=== PATIENT | male | born 1950 | race Caucasian/White ===

== ENCOUNTER 2016-12-11 00:10 | Observation (INO) | payer BC, MEDICARE ==
[~2016-12-11] VITALS: Ht 188 cm; Wt 100.0 kg
[2016-12-11] VITALS (10 sets, daily range): BP systolic 111–202; BP diastolic 62–99; PULSE 70–97; RESP 16–20; TEMP 98–98.2; O2SAT 94–98
[2016-12-11] MEDS ORDERED: ASPI81CH CHEW (00:21)
[2016-12-11] MEDS ORDERED: BP MED (00:21)
[2016-12-11] MEDS ORDERED: ATOR1TAB18 PO (00:21)
[2016-12-11] MEDS ORDERED: TOPR50TA PO (00:21)
--- NOTE | 2016-12-11 00:23 | PD ---
HPI Chief Complaint: Syncope/Near-Syncope Time Seen by Provider: 00:17 Travel History International Travel<30 days: No Contact w/Intl Traveler<30days: No Traveled to known affect area: No History of Present Illness HPI 66-year-old male complains of palpitation, diaphoresis, lightheadedness and headache. Patient states that he was sitting down at home and watching TV and started having headache. Patient started having palpitation, diaphoresis and lightheadedness subsequently. Patient denies any visual change. Patient states the headache was aching headache diffuse over the head. Patient denies any neck pain. Patient denies any chest pain. Patient denies any shortness of breath. Patient denies abdominal pain. Patient states that he had nausea but no vomiting or diarrhea. Patient denies any focal weakness or numbness of extremity. Patient has history of CAD status post CABG. Patient has history of hypertension and dyslipidemia. Patient denies any history of diabetes. Patient is a nonsmoker. Patient denies any alcohol or drug abuse. EMS was called. Patient was on manager monitoring. Patient had frequent PVCs on the way to the ED. Patient states that he had arrhythmia in the past after his physician changed his medications. FORMERLY [facility], [facility] Past Medical History Cardiovascular Problems: Yes High Cholesterol: Yes Diabetes: No Hypertension: Yes Past Surgical History Cardiac Surgery: Yes (CABGX3 1999) Social History Alcohol Use: Yes (OCC.) Tobacco Use: No Substance Use: No Allergies-Medications (Allergen,Severity, Reaction): Coded Allergies: No Known Allergies (Unverified , 12/11/16) Reported Meds & Prescriptions Reported Meds & Active Scripts Active Reported Aspirin 81 Mg Chew 81 Mg CHEW HS [Bp Med] Atorvastatin (Atorvastatin Calcium) 80 Mg Tab 80 Mg PO HS Toprol XL (Metoprolol Succinate) 50 Mg Tab 75 Mg PO DAILY Review of Systems General / Constitutional: No: Fever Eyes: No: Visual changes HENT: Positive: Headaches, Lightheadedness Cardiovascular: Positive: Palpitations, No: Chest Pain or Discomfort Respiratory: No: Shortness of Breath Gastrointestinal: No: Abdominal Pain Genitourinary: No: Dysuria Musculoskeletal: No: Pain Skin: No Rash Neurologic: No: Weakness Psychiatric: No: Depression Endocrine: No: Polydipsia Hematologic/Lymphatic: No: Easy Bruising Physical Exam Narrative GENERAL: Well-nourished, well-developed patient. SKIN: Warm and dry. HEAD: Normocephalic. EYES: No scleral icterus. No injection or drainage. NECK: Supple, trachea midline. No JVD or lymphadenopathy. CARDIOVASCULAR: Regular rate and rhythm without murmurs, gallops, or rubs. RESPIRATORY: Breath sounds equal bilaterally. No accessory muscle use. GASTROINTESTINAL: Abdomen soft, non-tender, nondistended. MUSCULOSKELETAL: No cyanosis, or edema. BACK: Nontender without obvious deformity. No CVA tenderness. Neurologic exam normal. Data Data Last Documented VS Vital Signs Date Time Temp Pulse Resp B/P Pulse Ox O2 Delivery O2 Flow Rate FiO2 12/11/16 00:33 89 18 157/92 95 Room Air 12/11/16 00:13 98.2 Orders Electrocardiogram (12/11/16 00:18) Complete Blood Count With Diff (12/11/16 00:18) Comprehensive Metabolic Panel (12/11/16 00:18) Troponin I (12/11/16 00:18) Prothrombin Time / Inr (Pt) (12/11/16 00:18) Act Partial Throm Time (Ptt) (12/11/16 00:18) Urinalysis - C+S If Indicated (12/11/16 00:18) Thyroid Stimulating Hormone (12/11/16 00:18) Chest, Single Ap (12/11/16 00:18) Ct Brain W/O Iv Contrast(Rout) (12/11/16 00:18) Iv Access Insert/Monitor (12/11/16 00:18) Ecg Monitoring (12/11/16 00:18) Oximetry (12/11/16 00:18) Ct Abd/Pel W Iv Contrast(Rout) (12/11/16 01:21) Magnesium (Mg) (12/11/16 01:47) Iohexol 350 Inj (Omnipaque 350 Inj) (12/11/16 02:12) Consult Cardiology (12/11/16 ) Echo 2d Comp W/Dopp(Routine) (12/11/16 ) Labs Laboratory Tests Test 12/11/16 12/11/16 00:25 00:28 White Blood Count 9.5 TH/MM3 Red Blood Count 4.86 MIL/MM3 Hemoglobin 14.7 GM/DL Hematocrit 42.9 % Mean Corpuscular Volume 88.3 FL Mean Corpuscular Hemoglobin 30.2 PG Mean Corpuscular Hemoglobin 34.3 % Concent Red Cell Distribution Width 14.2 % Platelet Count 249 TH/MM3 Mean Platelet Volume 7.6 FL Neutrophils (%) (Auto) 51.5 % Lymphocytes (%) (Auto) 34.7 % Monocytes (%) (Auto) 10.5 % Eosinophils (%) (Auto) 2.7 % Basophils (%) (Auto) 0.6 % Neutrophils # (Auto) 4.9 TH/MM3 Lymphocytes # (Auto) 3.3 TH/MM3 Monocytes # (Auto) 1.0 TH/MM3 Eosinophils # (Auto) 0.3 TH/MM3 Basophils # (Auto) 0.1 TH/MM3 CBC Comment DIFF FINAL Differential Comment Prothrombin Time 10.8 SEC Prothromb Time International 1.0 RATIO Ratio Activated Partial 23.6 SEC Thromboplast Time Sodium Level 142 MEQ/L Potassium Level 3.2 MEQ/L Chloride Level 105 MEQ/L Carbon Dioxide Level 27.9 MEQ/L Anion Gap 9 MEQ/L Blood Urea Nitrogen 13 MG/DL Creatinine 1.12 MG/DL Estimat Glomerular Filtration 65 ML/MIN Rate Random Glucose 144 MG/DL Calcium Level 9.6 MG/DL Total Bilirubin 1.0 MG/DL Aspartate Amino Transf 30 U/L (AST/SGOT) Alanine Aminotransferase 39 U/L (ALT/SGPT) Alkaline Phosphatase 99 U/L Troponin I LESS THAN 0.02 NG/ML Total Protein 7.3 GM/DL Albumin 3.9 GM/DL Thyroid Stimulating Hormone 8.340 uIU/ML 3rd Gen Urine Color YELLOW Urine Turbidity CLEAR Urine pH 5.5 Urine Specific [place] 1.024 Urine Protein 30 mg/dL Urine Glucose (UA) NEG mg/dL Urine Ketones NEG mg/dL Urine Occult Blood NEG Urine Nitrite NEG Urine Bilirubin NEG Urine Urobilinogen LESS THAN 2.0 MG/DL Urine Leukocyte Esterase NEG Urine RBC LESS THAN 1 /hpf Urine WBC 1 /hpf Urine Squamous Epithelial <1 /hpf Cells Urine Mucus FEW /lpf Microscopic Urinalysis Comment CULT NOT INDICATED MDM Medical Decision Making Medical Screen Exam Complete: Yes Emergency Medical Condition: Yes Interpretation(s) EKG shows sinus rhythm with Q wave II, III, aVF. 1:20 AM. Last Impressions Head CT 12/11/16 0018 Signed Impressions: Service Date/Time: Sunday, December 11, 2016 00:38 - CONCLUSION: No acute disease. Sanjeev Adame Jr., MD Chest X-Ray 12/11/16 0018 Signed Impressions: Service Date/Time: Sunday, December 11, 2016 00:49 - CONCLUSION: 1. Questionable pneumoperitoneum below the left hemidiaphragm. 2. Clear lungs. Sanjeev Adame Jr., MD 1:23 AM. CBC within normal limit. CMP within normal limit. Potassium 3.2. Cardiac enzymes are normal. TSH 8.34. UA is negative. 2:[address] scan abdomen pelvis negative acute pathology. Differential Diagnosis Differential diagnosis including PACs, PVCs, atrial fibrillation, atrial flutter , arrhythmia. Narrative Course 66-year-old male complains of headache, palpitation, lightheadedness, diaphoresis. Patient had frequent PVCs on manager monitoring by EMS. No PVCs noted on the monitor in the ED. Diagnosis Primary Impression: Cardiac arrhythmia Qualified Code: I49.9 - Cardiac arrhythmia, unspecified cardiac arrhythmia type Admitting Information Admitting Physician Requests: Observation David Lal MD Dec 11, 2016 00:22
[2016-12-11 00:34] LABS: AUTOMATED NEUTROPHIL # 4.9 TH/MM3 (1.8-7.7); BASOPHIL # 0.1 TH/MM3 (0-0.2); BASOPHIL % 0.6 % (0.0-2.0); EOSINOPHIL # 0.3 TH/MM3 (0-0.4); EOSINOPHIL % 2.7 % (0.0-4.0); HEMATOCRIT 42.9 % (39.0-51.0); HEMO FLAGS DIFF FINAL; LYMPH % 34.7 % (9.0-44.0); LYMPHOCYTE # 3.3 TH/MM3 (1.0-4.8); MEAN CELL VOLUME 88.3 FL (80.0-100.0); MEAN CORPUSCULAR HEMOGLOBIN 30.2 PG (27.0-34.0); MEAN CORPUSCULAR HGB CONC 34.3 % (32.0-36.0); MONO % 10.5 % (0.0-8.0); NEUT % 51.5 % (16.0-70.0); PLATELET COUNT 249 TH/MM3 (150-450); RED BLOOD COUNT 4.86 MIL/MM3 (4.50-5.90); RED CELL DISTRIBUTION WIDTH 14.2 % (11.6-17.2); WHITE BLOOD COUNT 9.5 TH/MM3 (4.0-11.0)
[2016-12-11 00:48] LABS: BLOOD, URINE NEG (NEG); GLUCOSE,URINE NEG (NEG); KETONE, URINE NEG (NEG); MUCUS URINE FEW /lpf (OCC); NITRITE,URINE NEG (NEG); PH, URINE 5.5 (5.0-8.5); SQUAMOUS EPITHELIAL CELL URINE <1 /hpf (0-5); URINE COLOR YELLOW (YELLW/STRAW)
[2016-12-11 00:48] LABS: APTT (PATIENT) 23.6 SEC (24.3-30.1); PROTHROMBIN TIME - PATIENT 10.8 SEC (9.8-11.6)
[2016-12-11 00:49] LABS: COMMENT (UR) CULT NOT INDICATED; CULTURE IF INDICATED CULT NOT INDICATED
--- NOTE | 2016-12-11 00:57 | RADRPT ---
EXAM DATE/TIME: 12/11/2016 00:38 [facility] COMPARISON: No previous studies available for comparison. INDICATIONS : Near syncope along with headache. RADIATION DOSE: 35.77 CTDIvol (mGy) MEDICAL HISTORY : Hypertension. SURGICAL HISTORY : None. ENCOUNTER: Initial ACUITY: 1 day PAIN SCALE: 4/10 LOCATION: cranial TECHNIQUE: Multiple contiguous axial images were obtained of the head. Using automated exposure control and adj ustment of the mA and/or kV according to patient size, radiation dose was kept as low as reasonably a chievable to obtain optimal diagnostic quality images. FINDINGS: CEREBRUM: The ventricles are normal for age. No evidence of midline shift, mass lesion, hemorrhage or acute in farction. No extra-axial fluid collections are seen. POSTERIOR FOSSA: The cerebellum and brainstem are intact. The 4th ventricle is midline. The cerebellopontine angle i s unremarkable. EXTRACRANIAL: The visualized portion of the orbits is intact. SKULL: The calvaria is intact. No evidence of skull fracture. CONCLUSION: No acute disease. Sanjeev Adame Jr., MD on December 11, 2016 at 0:54 Board Certified Radiologist. This report was verified electronically.
[2016-12-11 01:10] LABS: ALKALINE PHOSPHATASE 99 U/L (45-117)
--- NOTE | 2016-12-11 01:13 | RADRPT ---
EXAM DATE/TIME: 12/11/2016 00:49 [facility] COMPARISON: No previous studies available for comparison. INDICATIONS : Shortness of breath, generalized weakness, and nausea. MEDICAL HISTORY : None. SURGICAL HISTORY : CABG. ENCOUNTER: Initial ACUITY: 1 day PAIN SCORE: 0/10 LOCATION: chest FINDINGS: A single view of the chest demonstrates the lungs to be symmetrically aerated without evidence of mas s, infiltrate or effusion. The cardiomediastinal contours are unremarkable. Osseous structures are intact. A linear lucency below the left hemidiaphragm suggesting air. I am unable to differentiate whether th is is within the fundus of the stomach or it represents pneumoperitoneum. CONCLUSION: 1. Questionable pneumoperitoneum below the left hemidiaphragm. 2. Clear lungs. Sanjeev Adame Jr., MD on December 11, 2016 at 1:11 Board Certified Radiologist. This report was verified electronically.
[2016-12-11 01:18] LABS: ALT (GPT) 39 U/L (12-78); ANION GAP 9 MEQ/L (5-15); AST (GOT) 30 U/L (15-37); BICARBONATE 27.9 MEQ/L (21.0-32.0); BLOOD UREA NITROGEN 13 MG/DL (7-18); CHLORIDE 105 MEQ/L (98-107); GLOMERULAR FILTRATION RATE 65 ML/MIN (>89); POTASSIUM 3.2 MEQ/L (3.5-5.1); SODIUM (NA) 142 MEQ/L (136-145)
[2016-12-11] MEDS ORDERED: IOHEXOL 350 MG/ML 10 ML VIAL (for RAD DIAG) IV ONE (02:12)
--- NOTE | 2016-12-11 02:41 | RADRPT ---
EXAM DATE/TIME: 12/11/2016 02:08 [facility] COMPARISON: No previous studies available for comparison. INDICATIONS : Abnormal chest radiograph. Evaluate for free abdominal air. IV CONTRAST: 100 cc Omnipaque 350 (iohexol) IV ; Cumulative dose for multiple exams. ORAL CONTRAST: No oral contrast ingested. RADIATION DOSE: 12.64 CTDIvol (mGy) MEDICAL HISTORY : Hypertension. SURGICAL HISTORY : CABG ENCOUNTER: Initial ACUITY: 1 day PAIN SCALE: 0/10 LOCATION: abdomen TECHNIQUE: Volumetric scanning of the abdomen and pelvis was performed. Using automated exposure control and ad justment of the mA and/or kV according to patient size, radiation dose was kept as low as reasonably achievable to obtain optimal diagnostic quality images. FINDINGS: LOWER LUNGS: Bibasilar atelectasis. LIVER: Homogeneous density without lesion. There is no dilation of the biliary tree. No calcified gallston es. SPLEEN: Normal size without lesion. PANCREAS: Within normal limits. KIDNEYS: Normal in size and shape. There is no mass or hydronephrosis. Bilateral nonobstructing renal calculi . The largest measures 5 mm. ADRENAL GLANDS: Within normal limits. VASCULAR: There is no aortic aneurysm. BOWEL/MESENTERY: The stomach, small bowel, and colon demonstrate no acute abnormality. There is no free intraperitone al air or fluid. Scattered colonic diverticuli without acute inflammation. ABDOMINAL WALL: Within normal limits. RETROPERITONEUM: There is no lymphadenopathy. BLADDER: No wall thickening or mass. REPRODUCTIVE: Within normal limits. INGUINAL: There is no lymphadenopathy or hernia. MUSCULOSKELETAL: Within normal limits for patient age. CONCLUSION: 1. No pneumoperitoneum. 2. Bilateral nonobstructing renal calculi. 3. Colonic diverticulosis. 4. No acute abnormality. Sanjeev Adame Jr., MD on December 11, 2016 at 2:36 Board Certified Radiologist. This report was verified electronically.
[2016-12-11] MEDS ORDERED: NALOXONE HCL 0.4 MG/ML AMP IV PRN (03:15)
[2016-12-11] MEDS ORDERED: SODIUM CHLORIDE 0.9% FLUSH 10 ML FLUSH IV FLUSH PRN (03:15)
[2016-12-11] MEDS ORDERED: PILL SPLITTER OTHER PRN (08:30)
[2016-12-11] MEDS ORDERED: POTASSIUM CHLORIDE 20 MEQ CONTROLLED RELEASE TAB PO ONE (08:30)
--- NOTE | 2016-12-11 08:44 | HHI.HP ---
HPI Service [facility] Primary Care Physician No Primary Care Physician Admission Diagnosis cardiac arrhythmia Diagnoses: Chief Complaint: palpitations, diaphoresis Travel History International Travel<30 Days: No Contact w/Intl Traveler <30 Da: No Traveled to Known Affected Are: No History of Present Illness 66-year-old male with history of CAD, CABG [id number] in 1999, HTN, HLD presents with palpitations and diaphoresis. The patient reports last night he was watching [facility] on the television when he had acute onset of profuse diaphoresis, palpitations, lightheadedness, nausea, but no vomiting. Denies any chest pain, pressure, or shortness of breath. Denies any abdominal pain or diarrhea. Denies any orthopnea, weight gain, or leg swelling. The patient states with his previous UT, his symptoms were much worse and associated with significant chest pain. He last had a stress test in Apr or May 2016 which was reportedly normal. He does not recall his last echocardiogram. His cyber crime investigator is Dr. Rafiq Lewis in [place]. The patient currently feels better, no further palpitations or diaphoresis overnight. Review of Systems Except as stated in HPI: all other systems reviewed are Neg Past Family Social History Past Medical History Nephrolithiasis Hypertension CAD in 1999 Hyperlipidemia Past Surgical History CABG x4 vessels, 1999 Reported Medications Aspirin 81 Mg Chew 81 Mg CHEW HS [Unknown Bp Med] Atorvastatin (Atorvastatin Calcium) 80 Mg Tab 80 Mg PO HS Toprol XL (Metoprolol Succinate) 50 Mg Tab 75 Mg PO DAILY Allergies: Coded Allergies: No Known Allergies (Unverified , 12/11/16) Active Ordered Medications Current Medications Medications (Trade) Dose Ordered Sig/Marily Route Start Time Stop Time Status Last Admin (NS Flush) 2 ml UNSCH PRN IV FLUSH 12/11/16 03:15 (NS Flush) 2 ml BID IV FLUSH 12/11/16 09:00 (Lovenox Inj) 40 mg Q24H SQ 12/11/16 09:00 Naloxone HCl 0.4 mg 0.4 mg UNSCH PRN IV 12/11/16 03:15 (Magnesium Sulfate 1 Gm Premix) 100 ml @ 100 mls/hr ONCE ONCE IV 12/11/16 09:00 12/11/16 09:59 (Aspirin Chew) 81 mg HS CHEW 12/11/16 21:00 (Lipitor) 80 mg HS PO 12/11/16 21:00 (Toprol Xl) 75 mg DAILY PO 12/11/16 09:00 (Pill Splitter) 1 ea UNSCH PRN OTHER 12/11/16 08:30 Family History Everyone in his family with heart disease, hypertension, some family members with MIs in their 40s Social History Quit smoking tobacco at age 21, no tobacco use since Occasional alcohol use Denies illicit drug use Physical Exam Vital Signs Vital Signs Date Time Temp Pulse Resp B/P Pulse Ox O2 Delivery O2 Flow Rate FiO2 12/11/16 06:21 86 18 125/76 94 Room Air 12/11/16 02:30 97 18 168/99 97 Room Air 12/11/16 00:33 89 18 157/92 95 Room Air 12/11/16 00:25 90 12/11/16 00:24 95 Room Air 12/11/16 00:13 98.2 96 20 202/95 97 Physical Exam GENERAL: Well-nourished, well-developed male patient, in NAD. SKIN: No rashes, ecchymoses or lesions. Cool and dry. HEAD: Atraumatic. Normocephalic. No temporal or scalp tenderness. EYES: Pupils equal round and reactive. Extraocular motions intact. No scleral icterus. No injection or drainage. ENT: Nose without bleeding, purulent drainage or septal hematoma. Airway patent. NECK: Trachea midline. No JVD or lymphadenopathy. Supple, nontender, no meningeal signs. CARDIOVASCULAR: Regular rate and rhythm without murmurs, gallops, or rubs. RESPIRATORY: Clear to auscultation. Breath sounds equal bilaterally. No wheezes , rales, or rhonchi. GASTROINTESTINAL: Abdomen soft, non-tender, nondistended. No hepato-splenomegaly , or palpable masses. No guarding. MUSCULOSKELETAL: Extremities without clubbing, cyanosis, or edema. No calf tenderness. NEUROLOGICAL: Awake and alert. Cranial nerves II through XII intact. Motor and sensory grossly within normal limits. Five out of 5 muscle strength in all muscle groups. Normal speech. Laboratory Laboratory Tests Test 12/11/16 12/11/16 12/11/16 00:25 00:28 06:20 White Blood Count 9.5 Red Blood Count 4.86 Hemoglobin 14.7 Hematocrit 42.9 Mean Corpuscular Volume 88.3 Mean Corpuscular Hemoglobin 30.2 Mean Corpuscular Hemoglobin 34.3 Concent Red Cell Distribution Width 14.2 Platelet Count 249 Mean Platelet Volume 7.6 Neutrophils (%) (Auto) 51.5 Lymphocytes (%) (Auto) 34.7 Monocytes (%) (Auto) 10.5 Eosinophils (%) (Auto) 2.7 Basophils (%) (Auto) 0.6 Neutrophils # (Auto) 4.9 Lymphocytes # (Auto) 3.3 Monocytes # (Auto) 1.0 Eosinophils # (Auto) 0.3 Basophils # (Auto) 0.1 CBC Comment DIFF FINAL Differential Comment Prothrombin Time 10.8 Prothromb Time International 1.0 Ratio Activated Partial 23.6 Thromboplast Time Sodium Level 142 Potassium Level 3.2 Chloride Level 105 Carbon Dioxide Level 27.9 Anion Gap 9 Blood Urea Nitrogen 13 Creatinine 1.12 Estimat Glomerular Filtration 65 Rate Random Glucose 144 Calcium Level 9.6 Magnesium Level 1.6 Total Bilirubin 1.0 Aspartate Amino Transf 30 (AST/SGOT) Alanine Aminotransferase 39 (ALT/SGPT) Alkaline Phosphatase 99 Troponin I LESS THAN 0.02 0.03 Total Protein 7.3 Albumin 3.9 Thyroid Stimulating Hormone 8.340 3rd Gen Urine Color YELLOW Urine Turbidity CLEAR Urine pH 5.5 Urine Specific [place] 1.024 Urine Protein 30 Urine Glucose (UA) NEG Urine Ketones NEG Urine Occult Blood NEG Urine Nitrite NEG Urine Bilirubin NEG Urine Urobilinogen LESS THAN 2.0 Urine Leukocyte Esterase NEG Urine RBC LESS THAN 1 Urine WBC 1 Urine Squamous Epithelial <1 Cells Urine Mucus FEW Microscopic Urinalysis Comment CULT NOT INDICATED Total Creatine Kinase 111 Result Diagram: 12/11/16 0025 12/11/16 0025 Imaging Last Impressions Abdomen/Pelvis CT 12/11/16 0121 Signed Impressions: Service Date/Time: Sunday, December 11, 2016 02:08 - CONCLUSION: 1. No pneumoperitoneum. 2. Bilateral nonobstructing renal calculi. 3. Colonic diverticulosis. 4. No acute abnormality. Sanjeev Adame Jr., MD Head CT 12/11/16 0018 Signed Impressions: Service Date/Time: Sunday, December 11, 2016 00:38 - CONCLUSION: No acute disease. Sanjeev Adame Jr., MD Chest X-Ray 12/11/16 0018 Signed Impressions: Service Date/Time: Sunday, December 11, 2016 00:49 - CONCLUSION: 1. Questionable pneumoperitoneum below the left hemidiaphragm. 2. Clear lungs. Sanjeev Adame Jr., MD Assessment and Plan Problem List: (1) Cardiac arrhythmia ICD Code: I49.9 Status: Acute Assessment and Plan 66-year-old male with history of CAD, CABG [id number] in 1999, HTN, HLD presents with palpitations and diaphoresis. Palpitations: with diaphoresis/lightheadedness/nausea. No chest pain. Initial troponins 0.02, 0.03, checking 3rd set. EKG shows sinus rhythm with Q wave II, III, aVF. Replace electrolytes. Monitor on telemetry. Holter monitor. Check echocardiogram. Consult cardiology. Continue patient's metoprolol. CAD s/p CABG: in 1999. Reportedly recent stress test in May 2016 unremarkable. His cyber crime investigator is Dr. Rafiq Lewis in [place]. Continue patient' s aspirin, statin, metoprolol. Hypokalemia/Hypomagnesemia: K 3.2, Mag 1.6, replaced with po KCl and IV mag sulfate. HTN/HLD: chronic, continue patient's metoprolol and statin. Patient also takes another BP med, unknown which med at this time, to verify with . DVT Prophylaxis: Lovenox Written by Laure Araya, acting as scribe for Dr. Clay on 12/11/16 at 08:43. All or portions of this note were transcribed by scribe Laure Araya. I, Dr. Lisa Clay personally performed the history, physical exam, and medical decision making; and confirmed the accuracy of the information in the transcribed note. Authenticated by Dr. Lisa Clay on 12/11/16 at 08:43. Discussed Condition With Patient, RN Problem Qualifiers (1) Cardiac arrhythmia: Qualified Code: I49.9 - Cardiac arrhythmia, unspecified cardiac arrhythmia type Laure Araya PA-C Dec 11, 2016 08:44 Lisa Clay MD Dec 11, 2016 18:12
[2016-12-11] MEDS: ENOXAPARIN SODIUM 40 MG/0.4 ML SYRINGE SQ SCH (09:00)
[2016-12-11] MEDS: SODIUM CHLORIDE 0.9% FLUSH 10 ML FLUSH IV FLUSH SCH ×2 (09:00→21:00)
[2016-12-11] MEDS ORDERED: MAGNESIUM SULFATE 1 GM PREMIX 100 ML IV ONE (09:00)
[2016-12-11] MEDS: METOPROLOL SUCCINATE 50 MG EXTENDED RELEASE TAB PO SCH (09:35)
--- NOTE | 2016-12-11 10:14 | MB ---
cc: KATE HIRSCH M.D. DATE OF CONSULTATION: 12/11/2016 REASON FOR CONSULTATION Evaluation of possible arrhythmia. HISTORY OF PRESENT ILLNESS Onel Dye is a 66-year-old man cared for by Dr. Rafiq Lewis in [place]. His phone number is [phone]. The patient has a history of having a silent heart attack and had anginal pain prior to his bypass. The bypass was in the year 1999 and was apparently a three-vessel bypass. His last nuclear stress test was right before he came down to [place], he estimates around April or May, and he was not told of any problems. He has had Holter monitors for arrhythmias and has been diagnosed with having PVCs, or what he calls useless beats. He had previously been on Altace. His insurance denied that and he got switched to something else that caused a cough and he got switched to something else but we do not have that medication on his med list. I am suspecting it may be an angiotensin receptor benjamin like losartan, but he could not recognize the name. He does not feel the PVCs that he has been documented as having in the past. He has had prior Holter monitors, but Dr. Lewis's office is not open yet so we could not get any history directly. The patient states he was watching TV and developed the onset of rapid palpitations, like his heart was beating hard, associated with presyncope and sweating. After about three minutes he called 911. It was still going on when [facility] picked him up. He apparently had some PVCs on his EKG. When [facility] picked him up he was not in atrial fibrillation. Subsequently has rhythm here has been normal. There has been no atrial fibrillation documented. He does not have any chest pain. His initial troponins are negative. He works at a [employer], does a fair amount of walking involved with that, does not have any anginal symptoms. Denies shortness of breath or chest discomfort. He has not been aware of any palpitations prior to this. He also had some nausea associated with his symptoms when he came. PAST MEDICAL HISTORY 1. Hypertension. 2. Hyperlipidemia. 3. Coronary artery disease and bypass in the year 1999. 4. Frequent PVCs, has been treated with a beta-benjamin MEDICATIONS 1. Aspirin 81 mg. 2. Atorvastatin 80 mg. 3. Toprol 75 mg. 4. Plus another green pill and we do not know the name of. SOCIAL HISTORY Occasional alcohol. Non-smoker. ALLERGIES None known. PAST SURGICAL HISTORY Notable for bypass surgery. PHYSICAL EXAMINATION GENERAL: A well-developed, well-nourished white male in no acute distress. VITAL SIGNS: Vital signs are charted. HEENT: Exam unremarkable. NECK: No JVD. No bruits. CHEST: Clear to auscultation. CARDIAC: S1, S2, regular rate and rhythm. No murmurs or gallops. ABDOMEN: Soft, nontender. No masses or organomegaly. EXTREMITIES: No clubbing, cyanosis or edema. Pulses are intact. EKG EKG shows sinus rhythm, evidence for an old inferior wall MD and nonspecific ST-T wave changes. LABORATORY Troponin has been negative x2. TSH 8.34. Hematocrit 42.9. IMAGING Chest x-ray showed clear lungs. Abdominal CT showed renal stones and diverticulosis. Head CT showed no acute disease. A 2-D echo Doppler study is pending. IMPRESSION/PLAN A 66-year-old man with a 30 minute episode of palpitations, presyncope and sweating, suspicious for some type of an arrhythmia. All that was documented when [facility] showed up were PVCs. We do not have any arrhythmia detected here. A 2-D echo Doppler is ordered to make sure he does not have LV dysfunction that would warrant an EP evaluation for ventricular arrhythmias. I would be suspicious of atrial fibrillation, but there was no atrial fibrillation picked up when [facility] arrived and apparently symptoms were ongoing when [facility] arrived. Will try to get a hold of Dr. Lewis who follows him regularly to see if there is any further suggestions he has. The patient is returning to [facility] in exactly one month. Will see what his echo shows first. Further therapy to be determined. MD ALESIA Fermin/CAMPOS /7:54 AM /9:53 AM
--- NOTE | 2016-12-11 19:02 | EC ---
Study Study Date:12/11/2016 STUDY CONCLUSIONS SUMMARY LEFT VENTRICLE: The cavity size was normal. Wall thickness was increased in a pattern of mild LVH. Systolic function was normal. The estimated ejection fraction was 55%. Wall motion was normal; there were no regional wall motion abnormalities. If LV function is below 40, please consider prescribing an ACEI or ARB or document rationale for non-use. PROCEDURE DATA STUDY STATUS: Elective. Procedure: Transthoracic echocardiography. Image quality was good. Scanning was performed from the parasternal, apical, and subcostal acoustic windows. Study completion: The patient tolerated the procedure well. Transthoracic echocardiography. M-mode, complete 2D, complete spectral Doppler, and color Doppler. Patient status: Inpatient. CARDIAC ANATOMY LEFT VENTRICLE: The cavity size was normal. Wall thickness was increased in a pattern of mild LVH. Systolic function was normal. The estimated ejection fraction was 55%. Wall motion was normal; there were no regional wall motion abnormalities. AORTIC VALVE: Trileaflet; normal thickness leaflets. Doppler: Transvalvular velocity was within the normal range. There was no stenosis. No regurgitation. AORTA: Aortic root: The aortic root was normal in size. MITRAL VALVE: Structurally normal valve. Doppler: Transvalvular velocity was within the normal range. There was no evidence for stenosis. Trace regurgitation. LEFT ATRIUM: The atrium was normal in size. RIGHT VENTRICLE: The cavity size was normal. Wall thickness was normal. PULMONIC VALVE: Doppler: Transvalvular velocity was within the normal range. There was no evidence for stenosis. No regurgitation. TRICUSPID VALVE: Structurally normal valve. Doppler: Transvalvular velocity was within the normal range. Trace regurgitation. PULMONARY ARTERY: The main pulmonary artery was normal-sized. Systolic pressure was within the normal range. RIGHT ATRIUM: The atrium was normal in size. PERICARDIUM: There was no pericardial effusion. SYSTEMIC VEINS: Inferior vena cava: The vessel was normal in size. BASIC MEASUREMENTS ADULT Normal Left ventricle LV internal dimension, ED, chordal level, *38.5 mm 43-52 PLAX LV internal dimension, ES, chordal level, 29.1 mm 23-38 PLAX Fractional shortening, chordal level, PLAX *24 % >29 LV posterior wall thickness, ED 12 mm IVS/LVPW ratio, ED *1.37 <1.3 Ventricular septum Septal thickness, ED 16.4 mm Aortic valve Leaflet separation 20 mm 15-26 Right ventricle RV internal dimension, ED, PLAX 25.2 mm 19-38 BASIC MEASUREMENTS ADULT Normal Aortic valve Leaflet separation 20 mm 15-26 Aorta Root diameter, ED 36 mm 20-37 Left atrium Anterior-posterior dimension, ES 38 mm 19-40 LA/aortic root ratio 1.06 DOPPLER MEASUREMENTS ADULT Normal Main pulmonary artery Pressure, S 26 mm Hg =30 Mitral valve Peak E-wave velocity 59.7 cm/s Peak A-wave velocity 80 cm/s Peak E/A ratio 0.7 Tricuspid valve Regurgitant peak velocity 200 cm/s Peak RV-RA gradient, S 16 mm Hg Systemic veins Estimated CVP 10 mm Hg Right ventricle RV pressure, S 26 mm Hg <30 LEGEND: Mean values are shown as u=mean value. Asterisk (*) dunlap values outside specified normal range. Prepared and signed by Manpreet Bledsoe [id number]
[2016-12-11] MEDS ORDERED: ATORVASTATIN 80 MG TAB PO SCH (21:00)
[2016-12-11] MEDS ORDERED: ASPIRIN 81 MG CHEW TAB CHEW SCH (21:00)
[2016-12-12 00:25] VITALS: BP 123/73; PULSE 69; RESP 20; TEMP 98; O2SAT 95
[2016-12-12 03:48] VITALS: BP 125/75; PULSE 70; RESP 18; TEMP 98; O2SAT 95
[2016-12-12 08:01] VITALS: BP 126/80; PULSE 71; RESP 20; TEMP 97.8; O2SAT 94
--- NOTE | 2016-12-12 08:03 | HHI.PR ---
Subjective Remarks Follow up for palpitations, diaphoresis, suspected arrhythmia. The patient denies any further episodes of palpitations or diaphoresis since arrival. Denies any chest pain or shortness of breath. He wants to go home. Holter placed last night at 9;30pm, he will return tomorrow morning. Objective Vitals Vital Signs Date Time Temp Pulse Resp B/P Pulse Ox O2 Delivery O2 Flow Rate FiO2 12/12/16 03:48 98.0 70 18 125/75 95 12/12/16 00:25 98.0 69 20 123/73 95 12/11/16 20:00 74 12/11/16 19:18 98.2 72 16 121/75 95 12/11/16 16:49 98.0 70 19 111/62 95 12/11/16 15:57 86 18 132/79 98 12/11/16 09:34 87 18 132/80 96 Room Air Result Diagram: 12/11/16 0025 12/11/16 0025 Imaging Last Impressions Abdomen/Pelvis CT 12/11/16 0121 Signed Impressions: Service Date/Time: Sunday, December 11, 2016 02:08 - CONCLUSION: 1. No pneumoperitoneum. 2. Bilateral nonobstructing renal calculi. 3. Colonic diverticulosis. 4. No acute abnormality. Sanjeev Adame Jr., MD Head CT 12/11/1617 Signed Impressions: Service Date/Time: Sunday, December 11, 2016 00:38 - CONCLUSION: No acute disease. Sanjeev Adame Jr., MD Chest X-Ray 12/11/1617 Signed Impressions: Service Date/Time: Sunday, December 11, 2016 00:49 - CONCLUSION: 1. Questionable pneumoperitoneum below the left hemidiaphragm. 2. Clear lungs. Sanjeev Adame Jr., MD Objective Remarks GENERAL: Well-nourished, well-developed male patient, in NAD. SKIN: No rashes, ecchymoses or lesions. Cool and dry. HEAD: Atraumatic. Normocephalic. No temporal or scalp tenderness. EYES: Pupils equal round and reactive. Extraocular motions intact. No scleral icterus. No injection or drainage. ENT: Nose without bleeding, purulent drainage or septal hematoma. Airway patent. NECK: Trachea midline. No JVD or lymphadenopathy. Supple. CARDIOVASCULAR: Regular rate and rhythm without murmurs, gallops, or rubs. RESPIRATORY: Clear to auscultation. Breath sounds equal bilaterally. No wheezes , rales, or rhonchi. GASTROINTESTINAL: Abdomen soft, non-tender, nondistended. No hepato-splenomegaly , or palpable masses. No guarding. MUSCULOSKELETAL: Extremities without clubbing, cyanosis, or edema. No calf tenderness. NEUROLOGICAL: Awake and alert. Cranial nerves II through XII intact. Motor and sensory grossly within normal limits. Normal speech. Medications and IVs Current Medications Medications (Trade) Dose Ordered Sig/Marily Route Start Time Stop Time Status Last Admin (NS Flush) 2 ml UNSCH PRN IV FLUSH 12/11/16 03:15 (NS Flush) 2 ml BID IV FLUSH 12/11/16 09:00 12/11/16 21:00 (Lovenox Inj) 40 mg Q24H SQ 12/11/16 09:00 (Narcan Inj) 0.4 mg UNSCH PRN IV 12/11/16 03:15 (Aspirin Chew) 81 mg HS CHEW 12/11/16 21:00 12/11/16 21:47 (Lipitor) 80 mg HS PO 12/11/16 21:00 12/11/16 21:47 (Toprol Xl) 75 mg DAILY PO 12/11/16 09:00 12/11/16 09:35 (Pill Splitter) 1 ea UNSCH PRN OTHER 12/11/16 08:30 Urinary Catheter: No Vascular Central Line Catheter: No A/P Problem List: (1) Cardiac arrhythmia ICD Code: I49.9 Status: Acute Assessment and Plan 66-year-old male with history of CAD, CABG [id number] in 1999, HTN, HLD presents with palpitations and diaphoresis. Palpitations, suspect Cardiac Arrhythmia: with diaphoresis/lightheadedness/ nausea. No chest pain. ACS ruled out- serial troponins 0.02, 0.03, 0.02. EKG shows sinus rhythm with Q wave II, III, aVF. Replaced electrolytes. Monitor on telemetry. Holter monitor initiated. Echocardiogram with mild LVH, EF 55%. Consult cardiology, appreciate recommendations. Continue patient's metoprolol. Will discharge, outpatient f/up with cardiology Dr. Pat, patient plans to stay in [facility] for the next month. CAD s/p CABG: in 1999. Reportedly recent stress test in May 2016 unremarkable. His cowlman is Dr. Rafiq Lewis in [place]. Continue patient' s aspirin, statin, metoprolol. Hypokalemia/Hypomagnesemia: K 3.2, Mag 1.6, replaced with po KCl and IV mag sulfate. HTN/HLD: chronic, continue patient's metoprolol and statin. Patient also takes another BP med, unknown which med at this time, to verify with . DVT Prophylaxis: Lovenox Written by Laure Araya, acting as scribe for Dr. Clay on 12/12/16 at 08:33 All or portions of this note were transcribed by scribCristina BEARDEN. I, Dr. Lisa Clay personally performed the history, physical exam, and medical decision making; and confirmed the accuracy of the information in the transcribed note. Authenticated by Dr. Lias Clay on 12/12/16 at 08:33 Discharge Planning Discharge patient to home Condition on discharge: Improved Heart Healthy Diet as tolerated Ad Elza activity Rx written: no new meds Follow-up with primary care physician and cardiology Problem Qualifiers (1) Cardiac arrhythmia: Qualified Code: I49.9 - Cardiac arrhythmia, unspecified cardiac arrhythmia type Laure Araya PA-C Dec 12, 2016 08:03 Lisa Clay MD Dec 12, 2016 21:35
--- NOTE | 2016-12-12 08:34 | HHI.DCPOC ---
Discharge Care Plan Diagnosis: (1) Cardiac arrhythmia Goals to Promote Your Health * To prevent worsening of your condition and complications * To maintain your health at the optimal level Directions to Meet Your Goals Take your medications as prescribed Follow your dietary instruction Follow activity as directed Keep your appointments as scheduled Take your immunizations and boosters as scheduled If your symptoms worsen call your PCP, if no PCP go to Urgent Care Center or Emergency Room Smoking is Dangerous to Your Health. Avoid second hand smoke Call the 24-hour hour crisis hotline for domestic abuse at Laure Araya PA-C Dec 12, 2016 08:34 Lisa Clay MD Dec 12, 2016 21:31
[2016-12-12] MEDS: ENOXAPARIN SODIUM 40 MG/0.4 ML SYRINGE SQ SCH (08:49)
[2016-12-12] MEDS: METOPROLOL SUCCINATE 50 MG EXTENDED RELEASE TAB PO SCH (08:54)
--- NOTE | 2016-12-12 11:01 | EKG ---
Date Performed: 12/11/2016 Time Performed: 06:15:45 PTAGE: 66 years EKG: Sinus rhythm INFERIOR MYOCARDIAL INFARCTION ABNORMAL ECG PREVIOUS TRACING : 12/11/2016 00.15 DOCTOR: Omid Ascencio Interpretating Date/Time 12/12/2016 10:58:24
--- NOTE | 2016-12-12 11:06 | EKG ---
Date Performed: 12/11/2016 Time Performed: 00:15:22 PTAGE: 66 years EKG: Sinus rhythm PROBABLE LATERAL MYOCARDIAL INFARCTION INFERIOR MYOCARDIAL INFARCTION ABNORMAL ECG NO PREVIOUS TRACING DOCTOR: Omid Ascencio Interpretating Date/Time 12/12/2016 11:03:29
--- NOTE | 2016-12-12 16:23 | EKG ---
Date Performed: 12/11/2016 Time Performed: 12:27:22 PTAGE: 66 years EKG: Sinus rhythm WITH FIRST DEGREE AV BLOCK PROBABLE INFERIOR MYOCARDIAL INFARCTION Since previous tracing, no signif icant change noted ABNORMAL ECG PREVIOUS TRACING : 12/11/2016 06.15 DOCTOR: Jl Pat Interpretating Date/Time 12/12/2016 16:23:14
--- NOTE | 2016-12-14 18:29 | HM ---
Date Performed: 12/11/2016 Time Performed: 21:33:00 HOOKUP DATE: 12/11/16 09:33:00 PM Fri ANALYSIS START TIME: 12/11/2016 9:38:00 PM ANALYSIS END TIME: 12/12/2016 9:41:59 PM PATIENT AGE: 66 PATIENT HEIGHT PATIENT WEIGHT DRUG LIST PATIENT DIAGNOSIS: CARDIAC ARRHYTHMIA TEST NARRATIVE: The patient's average heart rate was 69 BPM. No episodes of tachycardia wer e noted. No episodes of bradycardia were noted. No pauses exceeding 2.0 seconds were noted. 665 ventricular ectopics, which represented 1% of the total beat count, were noted. The highest vent ricular ectopic frequency occurred from 04:00 AM to 05:00 AM Sat. During this time 45 VE(s) occurred . Ventricular ectopics were observed as 649 isolated beat(s) and as 8 couplet(s). No runs were note d. 3 supraventricular ectopics, which represented < 1% of the total beat count, were noted. The highest supraventricular ectopic frequency occurred from 02:00 PM to 03:00 PM Sat. During this time 2 SVE(s) occurred. No episodes of ST depression (defined as -1.0 mm or more) were noted in channe l 1. No episodes of ST depression (defined as -1.0 mm or more) were noted in channel 2. No episodes of ST depression (defined as -1.0 mm or more) were noted in channel 3. NO DIARY MAINTAINED TEST INTERPRETATION: [address] Refugio Alvarez Agree with above interpretation. Signed by : Refugio Alvarez
== END 2016-12-12 11:47 | disposition home or self-care (01) ==
LOC: NEPE 00:10 → INTOOBSV 03:18 → NEDA 03:18 → NEDH 07:36 → NEDA 12:32 → NEPFCDU 16:16
PROVIDERS: ADMIT Hospitalist; ATTEND Hospitalist
DX: R55 Syncope and collapse (principal); I49.9 Cardiac arrhythmia, unspecified; E78.00 Pure hypercholesterolemia, unspecified; I10 Essential (primary) hypertension; E78.5 Hyperlipidemia, unspecified; I25.10 Atherosclerotic heart disease of native coronary artery without angina pectoris; E83.42 Hypomagnesemia; E87.6 Hypokalemia; Z79.82 Long term (current) use of aspirin; Z95.1 Presence of aortocoronary bypass graft
CPT/HCPCS: 70450; 71010; 74177; 80053; 81001; 82550; 83735; 84443; 84484; 85025; 85610; 85730; 93005; 93225; 93226; 93306; G0378; J3475; Q9967